=== PATIENT | female | born 1990 ===

== ENCOUNTER → 2018-01-29 | Outpatient (CLI) | payer OTHER ==
[~2018-01-29] MED LIST: CYCL10TA29 PO; DICL-192 PO; MINO50TA7 PO; TRAM-420 PO
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
== END ==
LOC: RAD 10:06
PROVIDERS: ATTEND Internal Medicine
DX: S13.9XXA Sprain of joints and ligaments of unspecified parts of neck, initial encounter (principal); S33.5XXA Sprain of ligaments of lumbar spine, initial encounter; V89.2XXA Person injured in unspecified motor-vehicle accident, traffic, initial encounter
CPT/HCPCS: 72050; 72100